=== PATIENT | female | born 1975 | race Caucasian/White ===

== ENCOUNTER 2016-11-23 06:11 | Emergency (ER) | payer BC ==
[2016-11-23] MEDS ORDERED: Ketorolac INJ* 30 MG/ML 1 ML VIAL IV PUSH ONE (07:19)
[2016-11-23] MEDS ORDERED: Orphenadrine Citrate IV* 30 MG/ML 2 ML VIAL IV ONE (07:19)
--- NOTE | 2016-11-23 08:12 | RAD ---
HISTORY: Right-sided rib pain COMPARISONS: None VIEWS: 4, Frontal view of the chest with frontal and oblique views of the right hemithorax. FINDINGS: There is no displaced rib fracture or pneumothorax. The visualized lungs are clear. IMPRESSION: NO DISPLACED RIB FRACTURE OR PNEUMOTHORAX
[2016-11-23 09:47] VITALS: BP 118/71
--- NOTE | 2016-11-23 14:44 | ED ---
Ruy Francois Billy, scribed for Roque Arechiga MD on 11/23/16 at 0728 . HPI Chest Pain - HPI Summary HPI Summary: Patient is a 41 year-old female coming to [facility] presenting with constant right- sided rib cage pain for the last 6 days. She states she woke up with the pain without any known cause such as injury or trauma. She describes "muscle spasms, " pain severity 6/10. She has been taking ibuprofen and Tylenol for pain with improvement, although there was little improvement with OTC pain medication last night. Worse with deep breaths. Denies any abdominal pain, N/V/D, or constipation. - History of Current Complaint Chief Complaint: EDChestWallPain Time Seen by Provider: 11/23/16 07:15 Hx Obtained From: Patient Onset/Duration: Started Days Ago, Still Present Timing: Constant Initial Severity: Moderate Current Severity: Moderate Pain Intensity: 6 Pain Scale Used: 0-10 Numeric Chest Pain Location: Right Lateral Chest Pain Radiates: No Character: Other: - muscle spasms Aggravating Factor(s): Deep Breaths Alleviating Factor(s): Nothing Associated Signs and Symptoms: Positive: Other: - rash. Negative: Nausea, Abdominal Pain, Vomiting - Allergy/Home Medications Allergies/Adverse Reactions: Allergies Allergy/AdvReac Type Severity Reaction Status Date / Time Amoxicillin Allergy Severe See Comment Verified 12/15/13 14:46 Ciprofloxacin Allergy Severe See Comment Verified 12/15/13 14:46 CI Pigment Blue 63 AdvReac Insomnia Verified 12/15/13 14:50 [From Cymbalta] Duloxetine [From Cymbalta] AdvReac Insomnia Verified 12/15/13 14:50 PMH/Surg Hx/FS Hx/Imm Hx Endocrine/Hematology History: Denies: Hx Diabetes Cardiovascular History: Denies: Hx Hypertension, Hx Pacemaker/ICD Respiratory History: Reports: Hx Asthma History: Denies: Hx Renal Disease Musculoskeletal History: Reports: Hx Arthritis - SEVERAL JOINTS Sensory History: Denies: Hx Contacts or Glasses, Hx Hearing Aid Opthamlomology History: Denies: Hx Contacts or Glasses Neurological History: Reports: Hx Migraine - HAS PRN MED Psychiatric History: Reports: Hx Depression Denies: Hx Panic Disorder - Surgical History Surgery Procedure, Year, and Place: LT LAMINECTOMY L4-5 ,12/2004[facility] EYE SURGERY, diskectomy R L5/S1 -02/12/13 Hx Anesthesia Reactions: No Infectious Disease History: Yes Infectious Disease History: Denies: Traveled Outside the [place] in Last 30 Days - Family History Known Family History: Negative: Cardiac Disease, Hypertension, Diabetes - Social History Alcohol Use: None Substance Use Type: Reports: None Smoking Status (MU): Never Smoked Tobacco Review of Systems Negative: Abdominal Pain, Vomiting, Diarrhea, Nausea Positive: Other - Right-sided ribcage pain. Positive: Rash All Other Systems Reviewed And Are Negative: Yes Physical Exam - Summary Physical Exam Summary: The patient is well-nourished in no acute distress and in no acute pain. The skin is warm and dry and skin color reflects adequate perfusion. There is a small rash on the right-sided rib cage and flank region. HEENT: The head is normocephalic and atraumatic. The pupils are equal and reactive. The conjunctivae are clear and without drainage. Nares are patent and without drainage. Mouth reveals moist mucous membranes and the throat is without erythema and exudate. The external ears are intact. The ear canals are patent and without drainage. The tympanic membranes are intact. Neck is supple with full range of motion and non-tender. There are no carotid bruits. There is no neck vein distension. Respiratory: Right-sided rib cage tenderness around the 10th and 11th ribs. Lungs are clear to auscultation and breath sounds are symmetrical and equal. Cardiovascular: Heart is regular rate and rhythm. There is no murmur or rub auscultated. There is no peripheral edema and pulses are symmetrical and equal. Abdomen: The abdomen is soft and non-tender. There are normal bowel sounds heard in all four quadrants and there is no organomegaly palpated. Musculoskeletal: There is no back pain noted. Extremities are non-tender with full range of motion. There is good capillary refill. There is no peripheral edema or calf tenderness elicited. Neurological: Patient is alert and oriented to person, place and time. The patient has symmetrical motor strength in all four extremities. Cranial nerves are grossly intact. Deep tendon reflexes are symmetrical and equal in all four extremities. Psychiatric: The patient has an appropriate affect and does not exhibit any anxiety or depression. Triage Information Reviewed: Yes Vital Signs On Initial Exam: Initial Vitals Temp Pulse Resp BP Pulse Ox 97 F 87 20 135/63 100 11/23/16 06:14 11/23/16 06:14 11/23/16 06:14 11/23/16 06:14 11/23/16 06:14 Vital Signs Reviewed: Yes - Vaibhav Coma Scale Coma Scale Total: 15 Diagnostics - Vital Signs Vital Signs Temp Pulse Resp BP Pulse Ox 11/23/16 07:10 66 11/23/16 07:09 20 11/23/16 07:00 79 100 11/23/16 06:30 78 115/63 100 11/23/16 06:18 90 100 11/23/16 06:17 135/63 11/23/16 06:14 97 F 87 20 135/63 100 - Laboratory Lab Statement: Any lab studies that have been ordered have been reviewed, and results considered in the medical decision making process. - Radiology Ribs XR Xray Interpretation: No Acute Changes Radiology Interpretation Completed By: Radiologist Re-Evaluation - Re-Evaluation First Eval Re-Evaluation Time: 09:38 Change: Improved Comment: Labs and imaging discussed. Chest Pain Course/Dx - Course Assessment/Plan: Patient is a 41 year-old female coming to [facility] presenting with constant right-sided rib cage pain for the last 6 days. She states she woke up with the pain without any known cause such as injury or trauma. She describes "muscle spasms," pain severity 6/10. She has been taking ibuprofen and Tylenol for pain with improvement, although there was little improvement with OTC pain medication last night. Worse with deep breaths. Denies any abdominal pain, N/V/D, or constipation. Ribs XR shows no fracture of the ribs or pneumothorax. The patient is not tachycardic and not hypoxic, so we have low suspicion for PE. Negative RUQ tenderness, nausea, or vomiting, so we do not think she has cholelithiasis. Negative CVA tenderness, therefore we have low suspicion for kidney stones. No RLQ tenderness, therefore we have low suspicion appendicitis. Therefore, after discussion with the patient, she wants only anti- inflammatory and muscle relaxants and to be discharged home. She understands and was recommended to return to the ED if pain does not improve or worsens. At this point, she verbalizes her understanding. She is hemodynamically stable, A& Ox3. I discussed all the findings and test results with the patient. Patient was instructed to return to the emergency room immediately if any of the symptoms return or worsens. Plan of care was discussed with the patient and understands and agrees. All questions were answered at patient satisfaction. There were no further complaints or concerns. Lung exam before discharge: CTA B /L. Good air exchange. No wheezing or crackles heard. CVS: S1 and S2 present. No murmurs appreciated. Patient is alert and oriented x 3. Patient is hemodynamically stable. 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
== END 2016-11-23 09:50 | disposition home or self-care (01) ==
LOC: ED 06:11
DX: R07.89 Other chest pain (principal); R21 Rash and other nonspecific skin eruption
CPT/HCPCS: 96374; 96375; 99283; J1885; J2360